=== PATIENT | female | born 1940 | race Caucasian/White ===

== ENCOUNTER → 2017-02-11 | Outpatient (CLI) | payer MEDICARE, BC ==
[~2017-02-11] MED LIST: ASPIRIN325 MG PO; BIOTIN 800 MCG1 EACH PO; COZAAR25 MG PO; COZAAR50 MG PO; DELTASONE20 MG PO; ELIQUIS5 MG PO; INDERAL10 MG PO; LIPITOR40 MG PO; PRESERVISION A1 EACH PO; PROVENTIL OR V6.7 GM INH; SOTALOL80 MG PO; SYSTANE 0.3-0.440 ML OPHTH
== END | disposition disaster alternative care site (69) ==
LOC: GBCOE 09:52
DX: Z12.31 Encounter for screening mammogram for malignant neoplasm of breast (principal)
CPT/HCPCS: G0202